=== PATIENT | female | born 1990 | race Caucasian/White ===

== ENCOUNTER 2020-11-25 07:08 | Emergency (ER) | payer BC ==
[2020-11-25] MEDS ORDERED: Sodium Chloride 0.9% 1000 ML 1,000 ML IV STA (07:37)
[2020-11-25] MEDS ORDERED: Zofran 4 MG/2 ML VIAL IV STA (07:37)
[2020-11-25] MEDS ORDERED: HYDROCODONE-ACETAMIN 2.5-108/5 ML SOLUTION PO STA (07:39)
[2020-11-25] MEDS ORDERED: DECADRON 10MG INJ. IV ONE (07:40)
--- NOTE | 2020-11-25 07:52 | ERPHSYRPT ---
- History of Present Illness Time Seen by Provider: 11/25/20 07:15 Source: patient Exam Limitations: no limitations Patient Subjective Stated Complaint: COVID exposure, feeling symptomatic x 4 days. fever, cough, NVD, dehydration, ESTRADA/bodyaches Triage Nursing Assessment: pt to ED c/o fever, cough, NVD, ESTRADA/bodyaches. rates 5/10 body aches. "my kidneys hurt too so I'm sure I'm dehydrated." pts is COVID positive and pt began developing sx 4 days ago. been taking medication for fever round the clock and is febrile on arrival. o2 sat 91% on ra, does not appear in distress but placed on 2L NC and sats imrpoved. lung sounds crackles in bases on insp&exp. Physician History: This is a 30-year-old obese white female who has been exposed to her who is Covid positive and presents to the emergency department with cough, headache, body aches, nausea vomiting and diarrhea. She is also had a fever. Patient states that she just does not feel well. She has not been drinking or eating well in the last several days. Patient denies chest pain. She has no abdominal pain symptoms. Timing/Duration: day(s) (4) Cough Quality/Degree: mild, dry cough Possible Cause: illness exposure Modifying Factors: Improves With: coughing Associated Symptoms: fever, cough, headache, other (Body aches) Allergies/Adverse Reactions: cephalexin monohydrate [From Keflex] Allergy (Verified 02/22/13 21:10) Home Medications: Ciprofloxacin [Cipro 500 MG] 500 mg PO BID 02/22/13 [History] Phenazopyridine HCl 200 mg [Pyridium 200 mg] 200 mg PO TID 02/22/13 [History] Hx Tetanus, Diphtheria Vaccination/Date Given: No Hx Influenza Vaccination/Date Given: No (pt refused) Hx Pneumococcal Vaccination/Date Given: No (pt refused) Immunizations Up to Date: No Travel Risk - International Travel Have you traveled outside of the country in past 3 weeks: No - Coronavirus Screening Are you exhibiting any of the following symptoms?: Yes Symptoms: Fever, Cough: New Onset, Vomiting/Diarrhea, Headaches/Body Aches /Fatigue Close contact with a COVID-19 positive Pt in past 14-21 Days: Yes - Vaccine Status Have you recieved a Covid-19 vaccination: No - Review of Systems Constitutional: Fever Eyes: No Symptoms Ears, Nose, & Throat: No Symptoms Respiratory: Cough Cardiac: No Symptoms Abdominal/Gastrointestinal: Nausea, Vomiting, Diarrhea, Appetite Changes Genitourinary Symptoms: No Symptoms Musculoskeletal: Arthralgias, Myalgias Skin: No Symptoms Neurological: No Symptoms Psychological: No Symptoms Endocrine: No Symptoms Hematologic/Lymphatic: No Symptoms Immunological/Allergic: No Symptoms All Other Systems: Reviewed and Negative - Past Medical History Pertinent Past Medical History: No Neurological History: No Pertinent History ENT History: No Pertinent History Cardiac History: No Pertinent History Respiratory History: No Pertinent History Endocrine Medical History: No Pertinent History Musculoskeletal History: No Pertinent History GI Medical History: No Pertinent History History: Other Psycho-Social History: No Pertinent History Female Reproductive Disorders: No Pertinent History Other Medical History: kidney stones, fertility issues - Past Surgical History Past Surgical History: No Neuro Surgical History: No Pertinent History Cardiac: No Pertinent History Respiratory: No Pertinent History Gastrointestinal: No Pertinent History Genitourinary: No Pertinent History Musculoskeletal: No Pertinent History Female Surgical History: No Pertinent History - Social History Smoking Status: Never smoker Exposure to second hand smoke: Yes Drug Use: none Patient Lives Alone: No - Female History Hx Now: No - Nursing Vital Signs Nursing Vital Signs: Initial Vital Signs Temperature 100.0 F 11/25/20 07:09 Pulse Rate 115 H 11/25/20 07:09 Respiratory Rate 20 11/25/20 07:09 Blood Pressure 130/98 11/25/20 07:09 O2 Sat by Pulse Oximetry 91 L 11/25/20 07:09 Pain Scale Pain Intensity 5 - Physical Exam General Appearance: mild distress, alert, anxiety, obese Eye Exam: PERRL/EOMI, eyes nml inspection Ears, Nose, Throat Exam: normal ENT inspection, moist mucous membranes Neck Exam: normal inspection, non-tender, supple, full range of motion Respiratory Exam: normal breath sounds, lungs clear, airway intact, No chest tenderness, No respiratory distress Cardiovascular Exam: tachycardia Gastrointestinal/Abdomen Exam: soft, normal bowel sounds, No tenderness Pelvic Exam: not done Rectal Exam: not done Back Exam: normal inspection, normal range of motion, No CVA tenderness, No vertebral tenderness Extremity Exam: normal inspection, normal range of motion, pelvis stable Neurologic Exam: alert, oriented x 3, cooperative, tax consultant II-XII nml as tested, normal mood/affect, nml cerebellar function, nml station & gait, sensation nml Skin Exam: normal color, warm, dry SpO2 Interpretation: borderline oxygenation SpO2: 91 O2 Delivery: Room Air - Course Nursing assessment & vital signs reviewed: Yes EKG Interpreted by Me: RATE (98), Sinus Rhythm, NORMAL AXIS, NORMAL INTERVALS, NORMAL QRS, NORMAL ST-T, Other (No acute ischemic changes.) Ordered Tests: Active Orders 24 hr Category Date Time Status EKG-ER Only STAT Care 11/25/20 07:37 Active IV Insertion STAT Care 11/25/20 07:37 Active Isolation, Initiate & Maintain STAT Care 11/25/20 07:37 Active Oxygen-ED Only Nasal Cannula 2 lpm Care 11/25/20 07:37 Active Pulse Oximetry (ED) STAT Care 11/25/20 07:37 Active CHEST 1 VIEW (PORTABLE) Stat Exams 11/25/20 07:38 Completed BLOOD CULTURE Stat Lab 11/25/20 08:07 Received CBC W DIFF Stat Lab 11/25/20 08:02 Completed CMP Stat Lab 11/25/20 08:02 Completed D-DIMER QUANTITATIVE Stat Lab 11/25/20 08:02 Completed Ferritin Stat Lab 11/25/20 08:02 Completed HCG,QUALITATIVE URINE Stat Lab 11/25/20 07:44 Completed INFLUENZA A+B RAFA Stat Lab 11/25/20 08:00 Completed LDH-LACTATE DEHYDROGENASE Stat Lab 11/25/20 08:02 Completed Lactic Acid Stat Lab 11/25/20 07:37 Completed Manual Differential NC Stat Lab 11/25/20 08:02 Completed [place] Screen Stat Lab 11/25/20 08:02 Completed TROPONIN Q3H Lab 11/25/20 08:02 Completed TROPONIN Q3H Lab 11/25/20 10:45 Ordered TROPONIN Q3H Lab 11/25/20 13:45 Ordered TROPONIN Q3H Lab 11/25/20 16:45 Ordered TROPONIN Q3H Lab 11/25/20 19:45 Ordered UA W/RFX UR CULTURE Stat Lab 11/25/20 07:44 Completed Medication Summary Discontinued Medications Generic Name Dose Route Start Last Admin Trade Name Freq PRN Reason Stop Dose Admin Hydrocodone Bitart/Acetaminophen 10 ml 11/25/20 07:39 11/25/20 08:11 Hydrocodone-Acetamin 2.5-108/5 Ml Solution PO 11/25/20 07:40 10 ml STAT STA Administration Hydrocodone Bitart/Acetaminophen Confirm 11/25/20 08:01 Hydrocodone-Acetamin 2.5-108/5 Ml Solution Administered 11/25/20 08:02 Dose 10 ml .ROUTE .STK-MED ONE Dexamethasone Sodium Phosphate 10 mg 11/25/20 07:40 11/25/20 08:12 Decadron 10mg Inj. IV 11/25/20 07:41 10 mg STAT ONE Administration Dexamethasone Sodium Phosphate Confirm 11/25/20 08:01 Decadron 10mg Inj. Administered 11/25/20 08:02 Dose 10 mg .ROUTE .STK-MED ONE Sodium Chloride 1,000 mls @ 999 mls/hr 11/25/20 07:37 11/25/20 08:10 Sodium Chloride 0.9% 1000 Ml IV 11/25/20 08:37 999 mls/hr .Q1H1M STA Administration Sodium Chloride Confirm 11/25/20 08:01 Sodium Chloride 0.9% 1000 Ml Administered 11/25/20 08:02 Dose 1,000 mls @ ud .ROUTE .STK-MED ONE Ondansetron HCl 4 mg 11/25/20 07:37 11/25/20 08:12 Zofran 4 Mg/2 Ml Vial IV 11/25/20 07:38 4 mg STAT STA Administration Ondansetron HCl Confirm 11/25/20 08:00 Zofran 4 Mg/2 Ml Vial Administered 11/25/20 08:01 Dose 4 mg .ROUTE .STK-MED ONE Potassium Chloride 10 meq 11/25/20 08:47 Klor Con 10 Meq PO 11/25/20 08:48 STAT ONE Lab/Rad Data: Laboratory Result Diagrams 11/25/20 08:02 11/25/20 08:02 Laboratory Results 11/25/20 11/25/20 11/25/20 Range/Units 08:02 08:02 08:02 WBC (4.0-10.5) K/mm3 RBC (4.1-5.4) M/mm3 Hgb (12.0-16.0) gm/dl Hct (35-47) % MCV (78-100) fl MCH (26-32) pg MCHC (32-36) g/dl RDW (11.5-14.0) % Plt Count (150-450) K/mm3 MPV (7.5-11.0) fl Segmented Neutrophils (36.0-66.0) % Lymphocytes (Manual) (24-44) % Monocytes (Manual) (0.0-12.0) % Platelet Estimate (NORMAL) RBC Morphology D-Dimer (215-500) ng/mL Sodium (137-145) mmol/L Potassium (3.5-5.1) mmol/L Chloride (98-107) mmol/L Carbon Dioxide (22-30) mmol/L Anion Gap (5-15) MEQ/L BUN (7-17) mg/dL Creatinine (0.52-1.04) mg/dL Estimated GFR ML/MIN Glucose (74-106) mg/dL Lactic Acid (0.4-2.0) Calcium (8.4-10.2) mg/dL Ferritin 516 H (6.24-137) ng/mL Total Bilirubin (0.2-1.3) mg/dL AST (14-36) U/L ALT (0-35) U/L Alkaline Phosphatase (38-126) U/L Lactate Dehydrogenase (120-246) U/L Troponin I < 0.012 (0.000-0.034) ng/mL Serum Total Protein (6.3-8.2) g/dL Albumin (3.5-5.0) g/dL Urine Color (YELLOW) Urine Appearance (CLEAR) Urine pH (5-6) Ur Specific Wharton (1.005-1.025) Urine Protein (Negative) Urine Ketones (NEGATIVE) Urine Blood (0-5) Marquis/ul Urine Nitrite (NEGATIVE) Urine Bilirubin (NEGATIVE) Urine Urobilinogen (0-1) mg/dL Ur Leukocyte Esterase (NEGATIVE) Urine WBC (Auto) (0-5) /HPF Urine RBC (Auto) (0-2) /HPF U Epithel Cells (Auto) (FEW) /HPF Urine Bacteria (Auto) (NEGATIVE) /HPF Urine Mucus (Auto) (NEGATIVE) /HPF Urine Culture Reflexed (NO) Urine Glucose (NEGATIVE) mg/dL Urine HCG, Qual (Negative) Monoscreen NEGATIVE (Negative) Influenza Type A Ag (NEGATIVE) Influenza Type B Ag (NEGATIVE) Group A Strep Antibody (NEGATIVE) 0911/25/20 11/25/20 Range/Units 08:02 08:02 08:02 WBC 5.4 (4.0-10.5) K/mm3 RBC 5.31 (4.1-5.4) M/mm3 Hgb 15.1 (12.0-16.0) gm/dl Hct 45.3 (35-47) % MCV 85.3 (78-100) fl MCH 28.4 (26-32) pg MCHC 33.3 (32-36) g/dl RDW 13.5 (11.5-14.0) % Plt Count 315 (150-450) K/mm3 MPV 9.2 (7.5-11.0) fl Segmented Neutrophils 76 H (36.0-66.0) % Lymphocytes (Manual) 19 L (24-44) % Monocytes (Manual) 5 (0.0-12.0) % Platelet Estimate NORMAL (NORMAL) RBC Morphology NORMAL D-Dimer 740 H* (215-500) ng/mL Sodium 136 L (137-145) mmol/L Potassium 3.1 L (3.5-5.1) mmol/L Chloride 102 (98-107) mmol/L Carbon Dioxide 21 L (22-30) mmol/L Anion Gap 16.2 H (5-15) MEQ/L BUN 10 (7-17) mg/dL Creatinine 0.64 (0.52-1.04) mg/dL Estimated GFR > 60.0 ML/MIN Glucose 115 H (74-106) mg/dL Lactic Acid (0.4-2.0) Calcium 9.1 (8.4-10.2) mg/dL Ferritin (6.24-137) ng/mL Total Bilirubin 0.50 (0.2-1.3) mg/dL AST 56 H (14-36) U/L ALT 43 H (0-35) U/L Alkaline Phosphatase 68 (38-126) U/L Lactate Dehydrogenase 391 H (120-246) U/L Troponin I (0.000-0.034) ng/mL Serum Total Protein 7.6 (6.3-8.2) g/dL Albumin 4.2 (3.5-5.0) g/dL Urine Color (YELLOW) Urine Appearance (CLEAR) Urine pH (5-6) Ur Specific Wharton (1.005-1.025) Urine Protein (Negative) Urine Ketones (NEGATIVE) Urine Blood (0-5) Maqruis/ul Urine Nitrite (NEGATIVE) Urine Bilirubin (NEGATIVE) Urine Urobilinogen (0-1) mg/dL Ur Leukocyte Esterase (NEGATIVE) Urine WBC (Auto) (0-5) /HPF Urine RBC (Auto) (0-2) /HPF U Epithel Cells (Auto) (FEW) /HPF Urine Bacteria (Auto) (NEGATIVE) /HPF Urine Mucus (Auto) (NEGATIVE) /HPF Urine Culture Reflexed (NO) Urine Glucose (NEGATIVE) mg/dL Urine HCG, Qual (Negative) Monoscreen (Negative) Influenza Type A Ag (NEGATIVE) Influenza Type B Ag (NEGATIVE) Group A Strep Antibody (NEGATIVE) 11/25/20 11/25/20 11/25/20 Range/Units 08:00 07:44 07:44 WBC (4.0-10.5) K/mm3 RBC (4.1-5.4) M/mm3 Hgb (12.0-16.0) gm/dl Hct (35-47) % MCV (78-100) fl MCH (26-32) pg MCHC (32-36) g/dl RDW (11.5-14.0) % Plt Count (150-450) K/mm3 MPV (7.5-11.0) fl Segmented Neutrophils (36.0-66.0) % Lymphocytes (Manual) (24-44) % Monocytes (Manual) (0.0-12.0) % Platelet Estimate (NORMAL) RBC Morphology D-Dimer (215-500) ng/mL Sodium (137-145) mmol/L Potassium (3.5-5.1) mmol/L Chloride (98-107) mmol/L Carbon Dioxide (22-30) mmol/L Anion Gap (5-15) MEQ/L BUN (7-17) mg/dL Creatinine (0.52-1.04) mg/dL Estimated GFR ML/MIN Glucose (74-106) mg/dL Lactic Acid (0.4-2.0) Calcium (8.4-10.2) mg/dL Ferritin (6.24-137) ng/mL Total Bilirubin (0.2-1.3) mg/dL AST (14-36) U/L ALT (0-35) U/L Alkaline Phosphatase (38-126) U/L Lactate Dehydrogenase (120-246) U/L Troponin I (0.000-0.034) ng/mL Serum Total Protein (6.3-8.2) g/dL Albumin (3.5-5.0) g/dL Urine Color ANDREA (YELLOW) Urine Appearance SLIGHTLY CLOUDY (CLEAR) Urine pH 5.0 (5-6) Ur Specific Wharton 1.038 (1.005-1.025) Urine Protein >=500 (Negative) Urine Ketones NEGATIVE (NEGATIVE) Urine Blood NEGATIVE (0-5) Marquis/ul Urine Nitrite NEGATIVE (NEGATIVE) Urine Bilirubin SMALL (NEGATIVE) Urine Urobilinogen 2 (0-1) mg/dL Ur Leukocyte Esterase NEGATIVE (NEGATIVE) Urine WBC (Auto) 3-5 (0-5) /HPF Urine RBC (Auto) 6-10 (0-2) /HPF U Epithel Cells (Auto) RARE (FEW) /HPF Urine Bacteria (Auto) RARE (NEGATIVE) /HPF Urine Mucus (Auto) SLIGHT (NEGATIVE) /HPF Urine Culture Reflexed NO (NO) Urine Glucose NEGATIVE (NEGATIVE) mg/dL Urine HCG, Qual NEGATIVE (Negative) Monoscreen (Negative) Influenza Type A Ag NEGATIVE (NEGATIVE) Influenza Type B Ag NEGATIVE (NEGATIVE) Group A Strep Antibody (NEGATIVE) 11/25/20 11/25/20 Range/Units 07:38 07:37 WBC (4.0-10.5) K/mm3 RBC (4.1-5.4) M/mm3 Hgb (12.0-16.0) gm/dl Hct (35-47) % MCV (78-100) fl MCH (26-32) pg MCHC (32-36) g/dl RDW (11.5-14.0) % Plt Count (150-450) K/mm3 MPV (7.5-11.0) fl Segmented Neutrophils (36.0-66.0) % Lymphocytes (Manual) (24-44) % Monocytes (Manual) (0.0-12.0) % Platelet Estimate (NORMAL) RBC Morphology D-Dimer (215-500) ng/mL Sodium (137-145) mmol/L Potassium (3.5-5.1) mmol/L Chloride (98-107) mmol/L Carbon Dioxide (22-30) mmol/L Anion Gap (5-15) MEQ/L BUN (7-17) mg/dL Creatinine (0.52-1.04) mg/dL Estimated GFR ML/MIN Glucose (74-106) mg/dL Lactic Acid 1.3 (0.4-2.0) Calcium (8.4-10.2) mg/dL Ferritin (6.24-137) ng/mL Total Bilirubin (0.2-1.3) mg/dL AST (14-36) U/L ALT (0-35) U/L Alkaline Phosphatase (38-126) U/L Lactate Dehydrogenase (120-246) U/L Troponin I (0.000-0.034) ng/mL Serum Total Protein (6.3-8.2) g/dL Albumin (3.5-5.0) g/dL Urine Color (YELLOW) Urine Appearance (CLEAR) Urine pH (5-6) Ur Specific Wharton (1.005-1.025) Urine Protein (Negative) Urine Ketones (NEGATIVE) Urine Blood (0-5) Marquis/ul Urine Nitrite (NEGATIVE) Urine Bilirubin (NEGATIVE) Urine Urobilinogen (0-1) mg/dL Ur Leukocyte Esterase (NEGATIVE) Urine WBC (Auto) (0-5) /HPF Urine RBC (Auto) (0-2) /HPF U Epithel Cells (Auto) (FEW) /HPF Urine Bacteria (Auto) (NEGATIVE) /HPF Urine Mucus (Auto) (NEGATIVE) /HPF Urine Culture Reflexed (NO) Urine Glucose (NEGATIVE) mg/dL Urine HCG, Qual (Negative) Monoscreen (Negative) Influenza Type A Ag (NEGATIVE) Influenza Type B Ag (NEGATIVE) Group A Strep Antibody NOT DETECTED (NEGATIVE) - Progress Progress: improved, re-examined Air Movement: good Progress Note: 11/25/20 09:01 Chest x-ray shows bilateral patchy airspace disease. 11/25/20 09:30 Medical decision making: This patient does have bilateral patchy airspace disease. We walked her up and down the [place] with pulse oximeter on room air. Her oxygenation level did not fall below 91%. She was in no increased distress or short of breath. Patient desires to be discharged home. We will treat her with steroids and an antitussive agent as well as Zofran for any nausea or vomiting symptoms. She will quarantine herself until she receives the results of her outpatient COVID-19 test. Blood Culture(s) Obtained: Yes Antibiotics given: No Counseled pt/family regarding: lab results, diagnosis, need for follow-up, rad results - Departure Departure Disposition: Home Clinical Impression: Viral illness, Fever Condition: Stable Critical Care Time: No Referrals: DOCTOR,NO FAMILY [Primary Care Provider] - Additional Instructions: Drink plenty of fluids. Alternate Tylenol and ibuprofen for fever control. Take your medications as prescribed. Quarantine yourself until you receive the results of your COVID-19 test. Return to the emergency department if symptoms worsen. Prescriptions: Ondansetron ODT 4 MG [Zofran Odt 4 mg] 4 mg PO Q6H PRN PRN #10 tablet PRN Reason: Vomiting Hydrocodone/Acetaminophen [Hydrocodone-Acetamn 7.5-325/15] 10 ml PO Q8H PRN PRN #120 ml MDD 30 ml PRN Reason: Cough Prednisone 10 mg [Deltasone 10 mg] 10 mg PO TID #12 tablet
[2020-11-25] MEDS ORDERED: Zofran 4 MG/2 ML VIAL ONE (08:00)
[2020-11-25] MEDS ORDERED: DECADRON 10MG INJ. ONE (08:01)
[2020-11-25] MEDS ORDERED: Sodium Chloride 0.9% 1000 ML 1,000 ML ONE (08:01)
[2020-11-25] MEDS ORDERED: HYDROCODONE-ACETAMIN 2.5-108/5 ML SOLUTION ONE (08:01)
[2020-11-25 08:15] LABS: Hematocrit 45.3 % (35-47); Hemoglobin 15.1 gm/dl (12.0-16.0); Mean Cell Volume 85.3 fl (78-100); Mean Corpuscular Hemoglobin 28.4 pg (26-32); Mean Corpuscular Hgb Concent. 33.3 g/dl (32-36); Mean Platelet Volume 9.2 fl (7.5-11.0); Platelet Count 315 K/mm3 (150-450); Red Blood Count 5.31 M/mm3 (4.1-5.4); Red Cell Distribution Width 13.5 % (11.5-14.0); White Blood Count 5.4 K/mm3 (4.0-10.5)
[2020-11-25 08:24] LABS: Appearance SLIGHTLY CLOUDY (CLEAR); Bacteria RARE /HPF (NEGATIVE); Bilirubin SMALL (NEGATIVE); Blood NEGATIVE Ery/ul (0-5); Epithelial Cells RARE /HPF (FEW); Glucose NEGATIVE (NEGATIVE); Ketones NEGATIVE (NEGATIVE); Leukocyte Esterase NEGATIVE (NEGATIVE); Mucus SLIGHT /HPF (NEGATIVE); Nitrite NEGATIVE (NEGATIVE); Protein,Urine Dip >=500 (Negative); Specific Gravity 1.038 (1.005-1.025); Urobilinogen 2 mg/dL (0-1)
[2020-11-25 08:30] LABS: ALBUMIN 4.2 g/dL (3.5-5.0); ALKALINE PHOSPHATASE 68 U/L (38-126); ANION GAP 16.2 MEQ/L (5-15); BLOOD UREA NITROGEN 10 mg/dL (7-17); CHLORIDE 102 mmol/L (98-107); Calcium 9.1 mg/dL (8.4-10.2); Carbon Dioxide 21 mmol/L (22-30); Creatinine 1 0.64 mg/dL (0.52-1.04); EST GLOMERULAR FILTRATION RATE > 60.0 ML/MIN; Glucose 115 mg/dL (74-106); LDH-LACTATE DEHYDROGENASE 391 U/L (120-246); Potassium 3.1 mmol/L (3.5-5.1); SGOT/AST 56 U/L (14-36); SGPT/ALT 43 U/L (0-35); SODIUM 136 mmol/L (137-145); Total Protein 7.6 g/dL (6.3-8.2)
[2020-11-25 08:41] LABS: INFLUENZA A NEGATIVE (NEGATIVE); INFLUENZA B NEGATIVE (NEGATIVE)
[2020-11-25] MEDS ORDERED: Klor Con 10 MEQ PO ONE ×2 (08:47→09:37)
--- NOTE | 2020-11-25 08:56 | XRAY ---
Indication: Cough. Comparison: None Portable chest demonstrates mild patchy bilateral airspace disease and left costophrenic angle consolidation. Remaining heart and bony thorax normal.
[2020-11-25 09:14] LABS: Lymphocytes 19 % (24-44); Monocyte 5 % (0.0-12.0); Neutrophils 76 % (36.0-66.0); Platelet Estimate NORMAL (NORMAL); Total Cells Counted 100
[2020-11-25 09:43] VITALS: BP 114/72; PULSE 94; O2SAT 99
== END 2020-11-25 09:53 | disposition home or self-care (01) ==
LOC: ED 07:08
DX: B34.9 Viral infection, unspecified (principal); R50.9 Fever, unspecified
CPT/HCPCS: 36000; 36415; 71045; 80053; 81001; 82728; 83605; 83615; 84484; 84703; 85025; 85379; 86308; 87040; 87400; 87651; 93005; 94760; 96374; 96375; 99284; U0003; J1100; J2405; A9270-GY

== ENCOUNTER 2022-10-14 13:08 | Emergency (ER) | payer BC ==
[2022-10-14 13:27] VITALS: TEMP 98.8
[2022-10-14] MEDS ORDERED: TYLENOL 325 MG PO STA (13:52)
[2022-10-14 13:59] LABS: HCG URINE TEST NEGATIVE (NEGATIVE)
[2022-10-14] MEDS ORDERED: TYLENOL 325 MG ONE (14:02)
[2022-10-14 14:05] LABS: Absolute Neutrophil Ct (ANC) 9.47 x10^3/uL (1.4-6.9); BASOPHIL % 0.3 % (0.0-0.4); Basophil (Absolute #) 0.03 x10^3/uL (0-0.4); Eosinophil % 0.2 % (0.00-5.0); Eosinophil (Absolute #) 0.02 x10^3/uL (0-0.5); Hematocrit 42.1 % (35-47); Hemoglobin 13.7 g/dL (12.0-16.0); IMMATURE GRAN # 0.09 x10^3u/L (0.00-0.03); IMMATURE GRAN % 0.9 % (0.00-0.4); Lymphocyte (Absolute #) 0.65 x10^3/uL (1.0-4.6); Lymphocytes % 6.2 % (24.0-44.0); Mean Cell Volume 82.5 fL (78-100); Mean Corpuscular Hemoglobin 26.9 pg (26-32); Mean Corpuscular Hgb Concent. 32.5 g/dL (32-36); Mean Platelet Volume 8.8 fL (7.5-11.0); Monocyte (Absolute #) 0.27 x10^3/uL (0.0-1.3); Monocytes % 2.6 % (0.0-12.0); Neutrophil % 89.8 % (36.0-66.0); Platelet Count 439 x10^3/uL (150-450); Red Cell Distribution Width 13.2 % (11.5-14.0); White Blood Count 10.5 x10^3/uL (4.0-10.5)
[2022-10-14] MEDS ORDERED: Zofran 4 MG/2 ML VIAL IV ONE (14:09)
--- NOTE | 2022-10-14 14:09 | ERPHSYRPT ---
- History of Present Illness Time Seen by Provider: 10/14/22 13:24 Source: patient Exam Limitations: no limitations Patient Subjective Stated Complaint: pt states that she was at the dentist on tuesday and he refused to care for her due to blood pressure. pt states that she has taken her blood pressure as prescribed with no relief Triage Nursing Assessment: pt ambulated into the er; pt is axo x4; c/o htn; c/o headache; htn; skin is PDW; no respiratory distress present Physician History: 32 years old female presented in the ER with chief complaint of uncontrolled hypertension. Patient reports she was having gestational hypertension, taking labetalol 300 twice a day and has delivery 5 months ago, stopped taking her medication and recently restarted labetalol 100 mg twice a day but does not seem working. Reports she woke up this morning with feeling nauseated and mild headache as if she was having flu symptoms. She checked her blood pressure it was 159/130. Earlier last week she had dental work-up planned but could not get it done because of blood pressure in 180s. Denies any chest pain palpitations or shortness of breath. No abdominal pain nausea or vomiting. No numbness tingling focal weakness or visual disturbance. Currently her blood pressure is 165/102 Allergies/Adverse Reactions: cephalexin monohydrate [From [employer]] Allergy (Verified 10/14/22 13:18) Home Medications: Labetalol HCl 100 mg [Trandate 100 MG] 100 mg PO BID 10/14/22 [History] Hx Tetanus, Diphtheria Vaccination/Date Given: Yes Hx Influenza Vaccination/Date Given: No (pt refused) Hx Pneumococcal Vaccination/Date Given: No (pt refused) Travel Risk - International Travel Have you traveled outside of the country in past 3 weeks: No - Coronavirus Screening Are you exhibiting any of the following symptoms?: Yes Symptoms: Vomiting/Diarrhea, Headaches/Body Aches/Fatigue Close contact with a COVID-19 positive Pt in past 14-21 Days: No - Vaccine Status Have you recieved a Covid-19 vaccination: No - Review of Systems Constitutional: No Symptoms Eyes: No Symptoms Ears, Nose, & Throat: No Symptoms Respiratory: No Symptoms Cardiac: No Symptoms Abdominal/Gastrointestinal: Nausea Genitourinary Symptoms: No Symptoms Musculoskeletal: No Symptoms Skin: No Symptoms Neurological: Headache Psychological: No Symptoms Endocrine: No Symptoms Hematologic/Lymphatic: No Symptoms - Past Medical History Pertinent Past Medical History: No Neurological History: No Pertinent History ENT History: No Pertinent History Cardiac History: Hypertension Respiratory History: No Pertinent History Endocrine Medical History: No Pertinent History Musculoskeletal History: No Pertinent History GI Medical History: No Pertinent History History: Other Psycho-Social History: No Pertinent History Female Reproductive Disorders: No Pertinent History Other Medical History: kidney stones, fertility issues - Past Surgical History Past Surgical History: Yes Neuro Surgical History: No Pertinent History Cardiac: No Pertinent History Respiratory: No Pertinent History Gastrointestinal: No Pertinent History Genitourinary: No Pertinent History Musculoskeletal: No Pertinent History Female Surgical History: Section Other Surgical History: stents in kidneys for stones - Social History Smoking Status: Never smoker Exposure to second hand smoke: Yes Drug Use: none Patient Lives Alone: No - Female History Hx Now: (UNKN) - Nursing Vital Signs Nursing Vital Signs: Initial Vital Signs Temperature 98.8 F 10/14/22 13:20 Pulse Rate 117 H 10/14/22 13:20 Respiratory Rate 18 10/14/22 13:20 Blood Pressure 173/121 10/14/22 13:20 O2 Sat by Pulse Oximetry 97 10/14/22 13:20 Pain Scale Pain Intensity 4 - Physical Exam General Appearance: no apparent distress, alert Eye Exam: PERRL/EOMI Ears, Nose, Throat Exam: normal ENT inspection Neck Exam: normal inspection, supple, full range of motion Respiratory Exam: normal breath sounds, lungs clear Cardiovascular Exam: normal heart sounds, tachycardia Gastrointestinal/Abdomen Exam: soft, normal bowel sounds, No tenderness Back Exam: normal inspection, normal range of motion Extremity Exam: normal inspection, normal range of motion Neurologic Exam: alert, oriented x 3, cooperative, automatic lathe setter II-XII nml as tested, normal mood/affect, nml cerebellar function, nml station & gait, sensation nml, No motor deficits Skin Exam: normal color SpO2 Interpretation: normal SpO2: 97 O2 Delivery: Room Air - Course EKG Interpreted by Me: RATE ([id number]), Sinus Tach, NORMAL AXIS, NORMAL INTERVALS, NORMAL QRS Ordered Tests: Active Orders 24 hr Category Date Time Status D[employer] Teacher STAT Care 10/14/22 13:52 Active EKG-ER Only STAT Care 10/14/22 13:51 Active IV Insertion STAT Care 10/14/22 13:51 Active CHEST 1 VIEW (PORTABLE) Stat Exams 10/14/22 13:52 Completed CBC W DIFF Stat Lab 10/14/22 13:40 Completed CMP Stat Lab 10/14/22 13:40 Completed HCG QUALITATIVE, URINE Stat Lab 10/14/22 13:59 Completed NT PRO BNPII Stat Lab 10/14/22 13:40 Completed TROPONIN Q4H Lab 10/14/22 13:40 Completed TROPONIN Q4H Lab 10/14/22 18:00 Ordered TROPONIN Q4H Lab 10/14/22 22:00 Ordered Medication Summary Discontinued Medications Generic Name Dose Route Start Last Admin Trade Name Cristiano PRN Reason Stop Dose Admin Acetaminophen 975 mg 10/14/22 13:52 10/14/22 14:03 Acetaminophen 325 Mg Tablet PO 10/14/22 13:53 975 mg STAT STA Administration Acetaminophen Confirm 10/14/22 14:02 Acetaminophen 325 Mg Tablet Administered 10/14/22 14:03 Dose 975 mg .ROUTE .STK-MED ONE Sodium Chloride 1,000 mls @ 999 mls/hr 10/14/22 14:34 10/14/22 14:44 Sodium Chloride 0.9% 1000 Ml IV 10/14/22 15:34 999 mls/hr .Q1H1M STA Administration Sodium Chloride Confirm 10/14/22 14:41 Sodium Chloride 0.9% 1000 Ml Administered 10/14/22 14:42 Dose 1,000 mls @ ud .ROUTE .STK-MED ONE Ondansetron HCl 4 mg 10/14/22 14:09 10/14/22 14:11 Ondansetron Hcl 4 Mg/2 Ml Vial IV 10/14/22 14:10 4 mg STAT ONE Administration Ondansetron HCl Confirm 10/14/22 14:10 Ondansetron Hcl 4 Mg/2 Ml Vial Administered 10/14/22 14:11 Dose 4 mg .ROUTE .STK-MED ONE Lab/Rad Data: Laboratory Result Diagrams 10/14/22 13:40 10/14/22 13:40 Laboratory Results 10/14/22 10/14/22 10/14/22 Range/Units 13:59 13:40 13:40 WBC (4.0-10.5) x10^3/uL RBC (4.1-5.4) x10^6/uL Hgb (12.0-16.0) g/dL Hct (35-47) % MCV (78-100) fL MCH (26-32) pg MCHC (32-36) g/dL RDW (11.5-14.0) % Plt Count (150-450) x10^3/uL MPV (7.5-11.0) fL Gran % (36.0-66.0) % Immature Gran % (Auto) (0.00-0.4) % Nucleat RBC Rel Count (0.00-0.1) % Eos # (Auto) (0-0.5) x10^3/uL Immature Gran # (Auto) (0.00-0.03) x10^3u/L Absolute Lymphs (auto) (1.0-4.6) x10^3/uL Absolute Monos (auto) (0.0-1.3) x10^3/uL Absolute Nucleated RBC (0.00-0.01) x10^3u/L Lymphocytes % (24.0-44.0) % Monocytes % (0.0-12.0) % Eosinophils % (0.00-5.0) % Basophils % (0.0-0.4) % Absolute Granulocytes (1.4-6.9) x10^3/uL Basophils # (0-0.4) x10^3/uL Sodium 139 (137-145) mmol/L Potassium 3.7 (3.5-5.1) mmol/L Chloride 104 (98-107) mmol/L Carbon Dioxide 20 L (22-30) mmol/L Anion Gap 19.0 H (5-15) MEQ/L BUN 9 (7-17) mg/dL Creatinine 0.58 (0.52-1.04) mg/dL Estimated GFR > 60.0 ML/MIN Glucose 102 (74-106) mg/dL Calcium 9.0 (8.4-10.2) mg/dL Total Bilirubin 0.50 (0.2-1.3) mg/dL AST 40 H (14-36) U/L ALT 38 H (0-35) U/L Alkaline Phosphatase 71 (38-126) U/L Troponin I < 0.012 (0.000-0.034) ng/mL NT-Pro-B Natriuret Pep < 20.0 (<300) pg/mL Serum Total Protein 8.2 (6.3-8.2) g/dL Albumin 4.5 (3.5-5.0) g/dL Urine HCG, Qual NEGATIVE (NEGATIVE) 10/14/22 Range/Units 13:40 WBC 10.5 (4.0-10.5) x10^3/uL RBC 5.10 (4.1-5.4) x10^6/uL Hgb 13.7 (12.0-16.0) g/dL Hct 42.1 (35-47) % MCV 82.5 (78-100) fL MCH 26.9 (26-32) pg MCHC 32.5 (32-36) g/dL RDW 13.2 (11.5-14.0) % Plt Count 439 (150-450) x10^3/uL MPV 8.8 (7.5-11.0) fL Gran % 89.8 H (36.0-66.0) % Immature Gran % (Auto) 0.9 H (0.00-0.4) % Nucleat RBC Rel Count 0.0 (0.00-0.1) % Eos # (Auto) 0.02 (0-0.5) x10^3/uL Immature Gran # (Auto) 0.09 H (0.00-0.03) x10^3u/L Absolute Lymphs (auto) 0.65 L (1.0-4.6) x10^3/uL Absolute Monos (auto) 0.27 (0.0-1.3) x10^3/uL Absolute Nucleated RBC 0.00 (0.00-0.01) x10^3u/L Lymphocytes % 6.2 L (24.0-44.0) % Monocytes % 2.6 (0.0-12.0) % Eosinophils % 0.2 (0.00-5.0) % Basophils % 0.3 (0.0-0.4) % Absolute Granulocytes 9.47 H (1.4-6.9) x10^3/uL Basophils # 0.03 (0-0.4) x10^3/uL Sodium (137-145) mmol/L Potassium (3.5-5.1) mmol/L Chloride (98-107) mmol/L Carbon Dioxide (22-30) mmol/L Anion Gap (5-15) MEQ/L BUN (7-17) mg/dL Creatinine (0.52-1.04) mg/dL Estimated GFR ML/MIN Glucose (74-106) mg/dL Calcium (8.4-10.2) mg/dL Total Bilirubin (0.2-1.3) mg/dL AST (14-36) U/L ALT (0-35) U/L Alkaline Phosphatase (38-126) U/L Troponin I (0.000-0.034) ng/mL NT-Pro-B Natriuret Pep (<300) pg/mL Serum Total Protein (6.3-8.2) g/dL Albumin (3.5-5.0) g/dL Urine HCG, Qual (NEGATIVE) - Progress Progress: improved Progress Note: 10/14/22 14:08 32 years old female presented in the ER with chief complaint of uncontrolled hypertension. Patient reports she was having gestational hypertension, taking labetalol 300 twice a day and has delivery 5 months ago, stopped taking her medication and recently restarted labetalol 100 mg twice a day but does not seem working. Reports she woke up this morning with feeling nauseated and mild headache as if she was having flu symptoms. She checked her blood pressure it was 159/130. Earlier last week she had dental work-up planned but could not get it done because of blood pressure in 180s. Denies any chest pain palpitations or shortness of breath. No abdominal pain nausea or vomiting. No numbness tingling focal weakness or visual disturbance. Currently her blood pressure is 165/102. EKG is sinus tach with no ST elevations. Patient is not in any distress. We will give her Zofran for nausea. Will obtain baseline labs including cardiacs. 10/14/22 15:49 She is feeling much better on reevaluation after Tylenol although blood pressure is still 160/102. No endorgan symptoms. Patient work-up showed some element of dehydration and given fluids. Chest x-ray negative for any acute cardiopulmonary findings. Normal white count and initial troponin. EKG showed sinus tach which improved after fluids. I believe patient blood pressure is uncontrolled and labetalol alone is not working very well, I will add Cozaar 25 mg and recommended keeping blood pressure log and outpatient follow-up. Discussed signs symptoms of worsening needing return to ER which she seems un derstanding Counseled pt/family regarding: lab results, diagnosis, need for follow-up, rad results Medical Desision Making - Diagnostic Testing Diagnostic test were ordered, analyzed, and reviewed by me: Yes Radiological Interpretation: Reviewed by me - Risk of complications The pt has a mod risk of morbidity or mortality based on: Need for prescription drug management - Departure Departure Disposition: Home Clinical Impression: Uncontrolled hypertension, Dehydration Condition: Stable Critical Care Time: No Referrals: RORY DENISE NP [Primary Care Provider] - Follow up/PCP as directed Instructions: Malignant Hypertension (DC), DASH Diet Additional Instructions: Drink plenty of fluids to keep yourself well-hydrated. Takes a low-salt diet. Regular exercise. Keep a blood pressure log 3 times a day and follow-up with primary care for reevaluation. Prescriptions: Losartan Potassium [Cozaar] 25 mg PO DAILY 30 Days #30 tablet
[2022-10-14] MEDS ORDERED: Zofran 4 MG/2 ML VIAL ONE (14:10)
[2022-10-14 14:26] LABS: ALBUMIN 4.5 g/dL (3.5-5.0); ALKALINE PHOSPHATASE 71 U/L (38-126); BLOOD UREA NITROGEN 9 mg/dL (7-17); CHLORIDE 104 mmol/L (98-107); Carbon Dioxide 20 mmol/L (22-30); Creatinine 1 0.58 mg/dL (0.52-1.04); EST GLOMERULAR FILTRATION RATE > 60.0 ML/MIN; Glucose 102 mg/dL (74-106); NT PRO BNPII < 20.0 pg/mL (<300); Potassium 3.7 mmol/L (3.5-5.1); SGOT/AST 40 U/L (14-36); SGPT/ALT 38 U/L (0-35); SODIUM 139 mmol/L (137-145); Total Protein 8.2 g/dL (6.3-8.2)
[2022-10-14] MEDS ORDERED: Sodium Chloride 0.9% 1000 ML 1,000 ML IV STA (14:34)
[2022-10-14] MEDS ORDERED: Sodium Chloride 0.9% 1000 ML 1,000 ML ONE (14:41)
--- NOTE | 2022-10-14 14:46 | XRAY ---
Indication: Hypertension. Comparison: November 25, 2020 Portable chest is now clear. Heart and mediastinal structures within normal limits. Bony thorax intact. Impression: Nonacute chest.
[2022-10-14 16:05] VITALS: BP 146/89; PULSE 101; RESP 5; O2SAT 96
== END 2022-10-14 16:13 | disposition home or self-care (01) ==
LOC: ED 13:08
DX: I10 Essential (primary) hypertension (principal); E86.0 Dehydration; R11.0 Nausea; R51.9 Headache, unspecified; Z79.899 Other long term (current) drug therapy; Z28.310 Unvaccinated for COVID-19
CPT/HCPCS: 36000; 36415; 71045; 80053; 81025; 83880; 84484; 85025; 93005; 93041; 96374; 99284; J2405; A9270-GY